=== PATIENT | female | born 1940 | race Caucasian/White ===

== ENCOUNTER 2018-03-11 18:57 | Observation (INO) | payer MEDICARE ==
[2018-03-11] MEDS ORDERED: Calcium Carbonate 500 MG ChewTAB PO PRN (21:41)
[2018-03-11] MEDS ORDERED: Ondansetron ODT 4 MG TAB PO PRN (21:41)
[2018-03-11] MEDS ORDERED: Labetalol HCl 100 MG/20 ML VIAL SLOW IVP PRN (21:41)
[2018-03-11] MEDS ORDERED: Zolpidem Tartrate 5 MG TAB PO PRN (21:41)
[2018-03-11] MEDS ORDERED: Acetaminophen 325 MG TAB PO PRN (21:41)
[2018-03-11] MEDS ORDERED: Senokot S 8.6-50 MG TAB PO PRN (21:41)
[2018-03-11] MEDS ORDERED: Ondansetron PF 4 MG/2 ML Vial IVP PRN (21:41)
[2018-03-11] MEDS ORDERED: Bisacodyl 10 MG SUPP PR PRN (21:41)
[2018-03-11] MEDS ORDERED: Acetaminophen 650 MG Suppository PR PRN (21:41)
[2018-03-11] MEDS ORDERED: hydrALAZINE 20 MG/ML VIAL SLOW IVP PRN (21:41)
[2018-03-11] MEDS ORDERED: Bisacodyl 5 MG TAB PO PRN (21:41)
[2018-03-11] MEDS ORDERED: Sodium Chloride 0.9% 1,000 ML IV SCH (21:45)
[2018-03-11 23:16] LABS: Troponin I Less than 0.010 ng/mL (< 0.028)
[2018-03-11] MEDS ORDERED: Acetaminophen 325 MG TAB ONE (23:31)
[2018-03-12 00:25] LABS: Troponin I Less than 0.010 ng/mL (< 0.028)
[2018-03-12] MEDS: cefTRIAXone\\ROCEPHIN 1 GM in Sodium Chloride 0.9% 100 ML IVPB SCH ×2 (01:21→23:54)
[2018-03-12 01:53] VITALS: BMI 31.4
[2018-03-12 05:10] LABS: #Basophils 0.1 thou/uL (0.0-0.2); #Eosinphils 0.2 thou/uL (0.0-0.7); #Lymphocytes 1.8 thou/uL (1.20-3.40); #Monocytes 0.8 thou/uL (0.11-0.59); #Neutrophils 5.2 thou/uL (1.40-6.50); %Basophils 0.7 % (0.0-1.0); %Eosinophils 2.1 % (0.0-10.0); %Lymphocytes 22.9 % (21.0-51.0); %Monocytes 9.5 % (0.0-10.0); %Neutrophils 64.8 % (42.0-75.0); Hemoglobin 10.5 g/dL (12.0-16.0); Mean Corpuscular HGB CONC 33.4 g/dL (32.0-36.0); Mean Corpuscular Hemoglobin 31.4 pg (27.0-31.0); Mean Corpuscular Volume 94.1 fL (78.0-98.0); Mean Platelet Volume 7.5 fL (7.4-10.4); Platelet Count 218 thou/uL (130-400); RBC Distribution Width 12.7 % (11.5-14.5); Red Blood Cell (RBC) Count 3.35 mill/uL (4.20-5.40)
[2018-03-12 05:30] LABS: Albumin 3.8 g/dL (3.4-4.8); Anion Gap 13 mmol/L (10-20); BUN (Urea Nitrogen) 34 mg/dL (9.8-20.1); BUN/Creatinine Ratio 26.36; Calc. Creatinine Clearance 50 mL/min (70-130); Calcium 9.5 mg/dL (7.8-10.44); Carbon Dioxide 26 mmol/L (23-31); Cardiac Risk 4.7 (Less than 4.5); Chloride 104 mmol/L (98-107); Cholesterol 270 mg/dl (< 200 Desired); Estimated GFR-MDRD 40; Glucose 149 mg/dL (83-110); HDL Cholesterol 57 mg/dL (>60 Neg Risk); LDL Cholesterol, Calculated 171 mg/dL; Phosphorus 4.1 mg/dL (2.3-4.7); Potassium 3.8 mmol/L (3.5-5.1); Sodium 139 mmol/L (136-145); Triglycerides 208 mg/dL (Less than 150)
--- NOTE | 2018-03-12 07:12 | HP ---
CHIEF COMPLAINT: Weakness and slurred speech. HISTORY OF PRESENT ILLNESS: This is an 78-year-old female with past medical history of diabetes mellitus type 2, hyperlipidemia, hypertension, history of vertigo, presenting with dizziness, weakness, and slurred speech. The patient was transferred from [place] because of chief complaint of dizziness. Per patient, her dizziness is as if her head is "spinning." Patient. This started on the day of admission. Per the patient, she has had this history in the past. The patient became severely dizzy when she stood up to go to the kitchen when she was at home. The patient stumbled back to her chair, and the patient stated that she also started experiencing some slurred speech during the episode of dizziness. At this point, the patient endorses dizziness and stated that her slurred speech is improving. The patient denies any chest pain, palpitations, abdominal pain, nausea, vomiting, constipation, diarrhea, shortness of breath, or cough. REVIEW OF SYSTEMS: Positive for dizziness and slurred speech, otherwise as documented in the HPI, all other systems have been reviewed and are negative. PAST MEDICAL HISTORY: Significant for diabetes mellitus type 2, hyperlipidemia, and hypertension. FAMILY HISTORY: Reviewed. The patient states that her family did have a history of dizzy spells. PAST SURGICAL HISTORY: Hysterectomy. PSYCHIATRIC HISTORY: History of depression. SOCIAL HISTORY: Denies alcohol use. Denies any illicit drug use. Denies any smoking history. ALLERGIES: THE PATIENT IS ALLERGIC TO SULFA. CURRENT MEDICATIONS: The patient takes; 1. Lisinopril. 2. Metformin. 3. Glipizide. PHYSICAL EXAMINATION: VITAL SIGNS: The patient's blood pressure is 218/95, pulse of 95, respiratory rate of 18, temperature of 97.4, and oxygen saturation of 94. GENERAL: The patient is lying on her left side, does not appear to be in any acute distress. The patient speaking to me in full sentences. The patient is alert and oriented x3. HEENT: Normocephalic, atraumatic. Pupils are equally round and reactive to light. Extraocular movements are intact. No scleral icterus. No conjunctival pallor. The patient has nystagmus that is present horizontal, variable depending on direction of gaze. NECK: Trachea is midline. No JVD. Supple. Full range of motion. LUNGS: Clear to auscultation bilaterally. No wheezing, no rales, no rhonchi appreciated. CARDIAC: Positive S1 and S2. Regular rate and rhythm. No murmurs, no gallops, no rubs appreciated. ABDOMEN: Soft, nontender, and nondistended. Positive bowel sounds in all quadrants. No peritoneal signs. No rigidity. No guarding. No rebound. EXTREMITIES: The patient has 5/5 upper extremity strength and 5/5 lower extremity strength. The patient does have good pulses bilaterally at the upper and lower extremities. No edema noted. NEUROLOGIC: The patient has mild slurred speech, which is improving. The patient has nystagmus horizontal bilaterally. NIH stroke scale is 1. SKIN: Dry, warm, and intact. PSYCHIATRIC: Normal affect. DIAGNOSTIC DATA: EKG; a 12-lead EKG shows sinus rhythm with a rate of 91 with incomplete right bundle-branch block. Imaging of the head CT negative. CT angio, there is less than 50% maximal stenosis involving the bilateral internal carotid arteries according to NASCET criteria, limited evaluation of the more distal vertebral arteries, but the vertebral arteries do appear codominant, otherwise patent. No significant focal stenosis or branch occlusion is seen involving the [place] or vertebrobasilar system, although there is questionable mild arthrosclerotic irregularity involving the proximal left posterior cerebral artery. No aneurysm seen within the limitation of the technique of this examination. LABORATORY DATA: WBC is 8.0, hemoglobin is 10.5, hematocrit is 31.5, and platelet count is 218. Sodium is 139, potassium is 3.8, chloride is 104, carbon dioxide of 26, anion gap of 13, BUN is 34, creatinine is 1.29, and glucose is 149. Troponins is less than 0.010. ASSESSMENT AND PLAN: This is an 78-year-old female, being admitted for: 1. Slurred speech, associated with dizziness, likely due to transient ischemic attack. At this point, we will rule out cerebrovascular accident. The patient's CT scan of the head has been negative. We will admit the patient to the stroke unit and we will get morning MRI. We will follow up on morning MRI and we have consulted Neurology. We will start the patient on aspirin, atorvastatin. We will continue to monitor the patient. 2. Acute kidney injury, most likely due to dehydration. We will continue the patient on IV hydration. We will follow up on morning labs. 3. Urinary tract infection. At this point, we will start the patient on Rocephin. 4. Diabetes mellitus, type 2. We will start the patient on insulin sliding scale. We will continue the patient on this medication and we will monitor the patient's blood sugars accordingly. 5. Hyperlipidemia. We will continue patient on statins. 6. Hypertension, uncontrolled. We will monitor the patient's blood pressure closely and we will start the patient on p.r.n. blood pressure medications to treat elevated blood pressures accordingly. 7. History of depression. We will continue the patient on her home medications. 8. Deep venous thrombosis and gastrointestinal prophylaxis. Job ID: [id number]
[2018-03-12] MEDS: Aspirin 81 mg Enteric Coated Tablet PO SCH (08:54)
[2018-03-12] MEDS: Enoxaparin Sodium 30 MG/0.3 ML SYRINGE SC SCH (08:54)
[2018-03-12] MEDS: Famotidine 20 MG TAB PO SCH (08:54)
[2018-03-12] MEDS: Famotidine/PF 20 mg/2ml Vial SLOW IVP SCH (08:55)
--- NOTE | 2018-03-12 11:42 | PDOC.PN ---
- Subjective Encounter Start Date: 03/12/18 Encounter Start Time: 10:12 Subjective: Patient sat up comfortably. No complaints. No vision disturbances. -: No further dizziness. Gait improved. Denies weakness or paraesthesias. -: No difficulty with her speech, previously slurred. No further vomiting. - Objective Resuscitation Status - Order Detail: 03/11/18 21:41 Resuscitation Status Routine Resuscitation Status: FULL: Full Resuscitation Vital Signs & Weight: Vital Signs (12 hours) Temp Pulse Resp BP Pulse Ox 03/12/18 11:00 98.5 F 70 16 143/65 H 94 L 03/12/18 07:00 97.8 F 72 18 179/77 H 93 L 03/12/18 03:00 98.5 F 64 16 140/64 93 L 03/11/18 23:50 97.6 F 74 18 146/65 H 95 Weight Weight 200 lb 8 oz I&O: 03/11/18 03/12/18 03/13/18 06:59 06:59 06:59 Intake Total 360 Balance 360 Result Diagrams: 03/12/18 04:14 03/12/18 04:14 Additional Labs: Accuchecks 03/12/18 03/12/18 10:53 05:48 POC Glucose 195 H 138 H Phys Exam - Physical Examination Constitutional: NAD HEENT: PERRLA, moist MMs, oral pharynx no lesions Neck: no nodes, supple, full ROM Respiratory: clear to auscultation bilateral Cardiovascular: RRR Gastrointestinal: soft, non-tender, no distention Musculoskeletal: no edema Neurological: non-focal, normal sensation, moves all 4 limbs Psychiatric: normal affect, A&O x 3 Skin: no rash Dx/Plan - Plan cont current plan of care Seen by Dr. Mijares -: Awaiting ECHO and Brain MRI * .
[2018-03-12] MEDS ORDERED: Dextrose 5% in Water 1,000 ML IV PRN (11:48)
[2018-03-12] MEDS ORDERED: HumaLOG 300 UNITS/3 ML VIAL SC PRN (11:48)
[2018-03-12] MEDS ORDERED: Dextrose 50% Abboject 50 ML SYRINGE SLOW IVP PRN (11:48)
[2018-03-12] MEDS: HumaLOG 300 UNITS/3 ML VIAL SC PRN ×2 (12:30→16:35)
--- NOTE | 2018-03-12 14:56 | CON ---
DATE OF CONSULTATION: 03/12/2018 CONSULTING PHYSICIAN: Hospitalist Service. IMPRESSION: Acute vertigo, suggestive of probable Meniere disease. PLAN: MRI of the brain to confirm peripheral etiology to this vertigo. HISTORY OF PRESENT ILLNESS: Ms. Cruz is an 78-year-old white female with past history of diabetes. She reports having intermittent episodes of vertigo over the last few years. She had a more intense episode of vertigo with nausea and vomiting and went to the emergency room yesterday. She had a CT of the brain and CTA done, nothing remarkable was found. Her symptoms have subsided to a degree, but she is still motion sensitive. Her thought that she seemed a bit disoriented yesterday and was having trouble speaking. There was no definite lateralized weakness or numbness. She reports some low-grade headache in the occipital region. She does not report any difficulty swallowing or double vision associated with this. She has noted that there is some diminished hearing on the right side. PAST MEDICAL HISTORY: Diabetes. ALLERGIES: DEMEROL AND SULFA. MEDICATION LIST: Reviewed. SOCIAL HISTORY: No tobacco or alcohol use. FAMILY HISTORY: Noncontributory. REVIEW OF SYSTEMS: No complaint of confusion, loss of awareness, chest pain, or shortness of breath. PHYSICAL EXAMINATION: GENERAL: She is a well-nourished elderly woman in no distress. VITAL SIGNS: Blood pressure 143/65, pulse 70, respirations are 16, and temperature 98.5. HEENT: Pupils are equal. Conjunctivae are clear. Oropharynx clear. Cranium, normocephalic and atraumatic. NECK: Supple. No lymphadenopathy noted per us. EXTREMITIES: No cyanosis, clubbing, or edema. NEUROLOGIC: She is alert and appropriate. Her speech is fluent and clear. Cranial nerve exam was notable for horizontally beating nystagmus bilaterally and lateral gaze. There was diminished hearing acuity on the right. Motor exam showed good strength bilaterally without fix or drift. Cerebellar testing showed normal [id number] and rapid alternating movements. Sensation was intact to light touch. Plantar responses were downgoing bilaterally. She was able to stand independently. LABORATORY STUDIES: Unremarkable CBC and serum chemistry other than mildly elevated blood sugars. Her risk ratio was 4.7. SUMMARY: This is an 78-year-old woman with acute vertigo with associated hearing loss on the right and negative workup thus far, would appear to be more likely a peripheral etiology rather than stroke related. We will see what the MRI shows. Job ID: [id number]
[2018-03-12] MEDS ORDERED: metFORMIN 500 MG TAB PO SCH (17:00)
[2018-03-12] MEDS ORDERED: Atorvastatin Calcium 40 MG TAB PO SCH (21:00)
[2018-03-13] MEDS ORDERED: glipiZIDE 5 MG TAB PO SCH (07:30)
[2018-03-13] MEDS: Enoxaparin Sodium 30 MG/0.3 ML SYRINGE SC SCH (08:55)
[2018-03-13] MEDS: Famotidine 20 MG TAB PO SCH (08:56)
[2018-03-13] MEDS: Aspirin 81 mg Enteric Coated Tablet PO SCH (08:56)
[2018-03-13] MEDS: Famotidine/PF 20 mg/2ml Vial SLOW IVP SCH (09:18)
[2018-03-13] MEDS ORDERED: hydrALAZINE 20 MG/ML VIAL SLOW IVP PRN (09:34)
--- NOTE | 2018-03-13 10:04 | MRI ---
NONCONTRAST MRI BRAIN: Date: 03-13-18 History: TIA. Altered mental status. Comparison: CT head, 03-11-18. FINDINGS: There is increased FLAIR and T2 weighted signal intensity seen in the periventricular white matter wi th scattered punctate areas in subcortical white matter which are nonspecific but likely reflective o f chronic small vessel ischemic changes. There is no evidence of an acute infarction. There is mild c erebral volume loss. The ventricular system is mildly out of proportion to the degree of sulcal atrop hy. This is likely attributable to greater central cerebral atrophy. Septum pellucidum and third vent ricle are in the midline. Appropriate flow voids are demonstrated at the base of the brain. There is mucosal thickening seen at each maxillary antrum as well as involving mild mucosal thickenin g and a few scattered ethmoidal air cells bilaterally as well as involving the left frontal sinus. [place] lenses are absent. The remainder of the skull base has a normal MRI appearance. Prominent degenerative changes are seen at the odontoid with the anterior arch of C1. IMPRESSION: 1. No acute intracranial abnormalities demonstrated. 2. Chronic small vessel ischemic changes and cerebral volume loss. 3. Sinus disease. POS: [facility]
[2018-03-13] MEDS ORDERED: Amlodipine 5 MG TAB PO ONE (10:50)
[2018-03-13 11:39] LABS: #Eosinphils 0.3 thou/uL (0.0-0.7); #Lymphocytes 1.5 thou/uL (1.20-3.40); #Monocytes 0.6 thou/uL (0.11-0.59); #Neutrophils 4.5 thou/uL (1.40-6.50); %Basophils 0.6 % (0.0-1.0); %Eosinophils 3.9 % (0.0-10.0); %Lymphocytes 22.3 % (21.0-51.0); %Monocytes 8.5 % (0.0-10.0); %Neutrophils 64.7 % (42.0-75.0); Hemoglobin 11.2 g/dL (12.0-16.0); Mean Corpuscular HGB CONC 32.8 g/dL (32.0-36.0); Mean Corpuscular Hemoglobin 30.8 pg (27.0-31.0); Mean Corpuscular Volume 93.9 fL (78.0-98.0); Platelet Count 234 thou/uL (130-400); RBC Distribution Width 12.7 % (11.5-14.5); Red Blood Cell (RBC) Count 3.63 mill/uL (4.20-5.40); White Blood Cell (WBC) Count 6.9 thou/uL (4.8-10.8)
[2018-03-13 11:51] VITALS: BP 139/68; TEMP 97.8
[2018-03-13 12:03] LABS: ALT (SGPT) 28 U/L (8-55); AST (SGOT) 27 U/L (5-34); Albumin 4.1 g/dL (3.4-4.8); Alkaline Phosphatase 73 U/L (40-150); Anion Gap 14 mmol/L (10-20); BUN (Urea Nitrogen) 25 mg/dL (9.8-20.1); Bilirubin, Total 0.5 mg/dL (0.2-1.2); Calc. Creatinine Clearance 50 mL/min (70-130); Calcium 9.8 mg/dL (7.8-10.44); Carbon Dioxide 27 mmol/L (23-31); Chloride 103 mmol/L (98-107); Estimated GFR-MDRD 40; Globulin 2.6 g/dL (2.4-3.5); Glucose 217 mg/dL (83-110); Potassium 4.5 mmol/L (3.5-5.1); Protein, Total 6.7 g/dL (6.0-8.3); Sodium 139 mmol/L (136-145)
[2018-03-13] MEDS: HumaLOG 300 UNITS/3 ML VIAL SC PRN (12:27)
[2018-03-14] MEDS ORDERED: Amlodipine 5 MG TAB PO SCH (09:00)
== END 2018-03-13 16:24 | disposition home or self-care (01) ==
LOC: ERS 18:57 → 2SE 21:15
PROVIDERS: ADMIT Internal Medicine; ATTEND Internal Medicine
DX: R42 Dizziness and giddiness (principal); I10 Essential (primary) hypertension; E11.9 Type 2 diabetes mellitus without complications; E78.5 Hyperlipidemia, unspecified; N17.9 Acute kidney failure, unspecified; N39.0 Urinary tract infection, site not specified; F32.9 Major depressive disorder, single episode, unspecified; Z88.2 Allergy status to sulfonamides; Z88.5 Allergy status to narcotic agent; Z90.710 Acquired absence of both cervix and uterus; Z79.84 Long term (current) use of oral hypoglycemic drugs; Z79.82 Long term (current) use of aspirin; Z79.2 Long term (current) use of antibiotics; Z79.899 Other long term (current) drug therapy
CPT/HCPCS: 70551; 80053; 80061; 80069; 82962 ×2; 84484; 85025 ×2; 87086; 93306; 96361; 96365; 96366; 96372 ×2; 97116; 97139 ×3; 99285; G0378 ×2; 36415; 36416; J0696; J1650; J7050

== ENCOUNTER 2024-01-17 10:41 | Outpatient (CLI) | payer MEDICARE | END 2024-01-17 10:42 | disposition home or self-care (01) | LOC: ULT 10:41 | PROVIDERS: ATTEND Internal Medicine Nephrology | DX: N18.9 Chronic kidney disease, unspecified (principal) | CPT/HCPCS: 76770 ==